=== PATIENT | male | born 1950 | race Caucasian/White ===

== ENCOUNTER → 2023-04-23 08:53 | Outpatient (BNVA) | payer MEDICARE, OTHER, SELFPAY | PROVIDERS: PCP Family Medicine; Referring Provider Physician Assistant; Visit Provider Psychiatry & Neurology Neurology | DX: K76.82 Hepatic encephalopathy (principal); G25.0 Essential tremor; R26.89 Other abnormalities of gait and mobility; R41.3 Other amnesia | CPT/HCPCS: 99203 ==

== ENCOUNTER → 2023-08-08 11:58 | Outpatient (BNVA) | payer MEDICARE, OTHER, SELFPAY | PROVIDERS: PCP Family Medicine; Visit Provider Psychiatry & Neurology Neurology | DX: G25.0 Essential tremor (principal); K76.82 Hepatic encephalopathy; R41.3 Other amnesia | CPT/HCPCS: 99212 ==

== ENCOUNTER → 2023-10-02 13:02 | Outpatient (BNVA) | payer MEDICARE, OTHER, SELFPAY | PROVIDERS: PCP Family Medicine; Visit Provider Psychiatry & Neurology Neurology | DX: G25.0 Essential tremor (principal); K76.82 Hepatic encephalopathy; R41.3 Other amnesia | CPT/HCPCS: 99212 ==